=== PATIENT | female | born 2000 | race Caucasian/White ===

== ENCOUNTER → 2023-03-16 09:05 | Outpatient (BNVA) | payer OTHER, SELFPAY | PROVIDERS: Family Provider Family Medicine; Visit Provider Nurse Practitioner Women's Health | DX: Z12.4 Encounter for screening for malignant neoplasm of cervix (principal); Z11.3 Encounter for screening for infections with a predominantly sexual mode of transmission; Z13.220 Encounter for screening for lipoid disorders; Z13.0 Encounter for screening for diseases of the blood and blood-forming organs and certain disorders involving the immune mechanism; Z13.29 Encounter for screening for other suspected endocrine disorder; Z13.228 Encounter for screening for other metabolic disorders; Z13.1 Encounter for screening for diabetes mellitus; Z01.419 Encounter for gynecological examination (general) (routine) without abnormal findings | CPT/HCPCS: 80053; 80061; 83036; 84443; 85025; 86592; 86803; 87340; 87491; 87591; 87806; 88175 ==